=== PATIENT | male | born 1945 | race Caucasian/White ===

== ENCOUNTER 2020-07-05 15:01 | Emergency (ER) | payer OTHER, SELFPAY ==
[2020-07-05 14:45] VITALS: BP 139/84; PULSE 82; RESP 16; TEMP 36.7; O2SAT 97
[2020-07-05 15:20] VITALS: PULSE 80; O2SAT 96
[2020-07-05 15:30] VITALS: PULSE 87; O2SAT 97
--- NOTE | 2020-07-05 15:35 | ED.BACK ---
HPI - Back Pain/Injury <RAMAN Hooks - Last Filed: 07/05/20 21:08> General Chief Complaint: Back Pain/Injury Stated Complaint: Back Spasms Time Seen by Provider: 07/05/20 15:07 Source: EMS History of Present Illness HPI Narrative: 74yo male presents to the ED for R knee pain. He states he has a history of sciatica, was recently seen at [facility] approximately 12 days ago for an infection in his right knee. Patient states he had surgery at that time it to remove the staph infection. He has been given pain medications. He states he noticed increasing pain this morning when it was time for his next delighted dose. Patient states he is able to put some weight on his leg but not bear full weight due to pain. He has a history of right-sided sciatica and states he has been having spasms and worsening back pain. Patient states he took his last dose of Dilaudid and does not have any pain medication at home. Patient has been taking Ephr[place] and Dilaudid at the same time. He states Ephrata does not touch his pain. He denies any fevers, chills, nausea, vomiting, diarrhea, worsening swelling, or other concerns. Related Data Previous Rx's Medication Instructions Recorded hydromorphone 1 mg PO Q4-6H PRN #10 tab 07/05/20 Allergies Allergy/AdvReac Type Severity Reaction Status Date / Time No Known Drug Allergies Allergy Verified 07/05/20 15:21 Review of Systems <RAMAN Hooks - Last Filed: 07/05/20 21:08> Review of Systems Narrative: REVIEW OF SYSTEMS: GENERAL: Denies fever or chills. HENT: No head trauma. CARDIOVASCULAR: No chest pain. RESPIRATORY: No shortness of breath. GASTROINTESTINAL: No nausea, vomiting, diarrhea, or constipation. GENITOURINARY: No flank pain. MUSCULOSKELETAL: Complains of right knee pain and right-sided sciatica, see HPI. INTEGUMENTARY: No rash, lesions, or pruritus. NEURO: No numbness, tingling. PSYCH: No behavior or mood changes. Patient History <RAMAN Hooks - Last Filed: 07/05/20 21:08> Medical History Sciatica (Acute) Social History Smoking Status: Never smoker Smoking Status: Never smoker Substance Use Type: does not use Exam <RAMAN Hooks - Last Filed: 07/05/20 21:08> Initial Vital Signs Initial Vital Signs: Vital Signs Temperature 98.1 F 07/05/20 14:45 Pulse Rate 82 07/05/20 14:45 Respiratory Rate 16 07/05/20 14:45 Blood Pressure 139/84 07/05/20 14:45 Pulse Oximetry 97 07/05/20 14:45 PHYSICAL EXAMINATION: GENERAL: Well groomed, alert, and cooperative. Answers questions promptly and appropriately. Vital signs noted. HENT: Normocephalic, atraumatic. EYES: Symmetrical, sclera white, no periorbital swelling. CARDIOVASCULAR: S1 and S2 sounds normal. Regular rate and rhythm, no murmurs, clicks, or bruits. RESPIRATORY: Normal respiratory rate, trachea midline, airway patent. No stridor, nasal flaring or accessory muscle use. Lungs are clear in all wilson. MUSCULOSKELETAL: Postsurgical swelling noted to right knee, no increased temp, erythema, or purulent drainage from surgical sites. No tenderness to calf or thigh. Patient has positive straight leg test, reports pain in right lower lumbar area.Equal tone and mass bilaterally. No spinal tenderness or deformities. EXTREMITIES: CMS intact. No pedal edema. SKIN: Warm, dry, soft, appropriate color for ethnicity. No lesions, rashes, or wounds. NEURO: Alert and Oriented X 3. No sensory deficits. PSYCH: Appropriate affect and mood. <Chao De Oliveira MD - Last Filed: 07/30/20 07:14> Initial Vital Signs Initial Vital Signs: Vital Signs Temperature 98.1 F 07/05/20 14:45 Pulse Rate 82 07/05/20 14:45 Respiratory Rate 16 07/05/20 14:45 Blood Pressure 139/84 07/05/20 14:45 Pulse Oximetry 97 07/05/20 14:45 Course <RAMAN Hooks - Last Filed: 07/05/20 21:08> Course Course Narrative: Patient continues to deny pain in the emergency department. Records obtained from [facility] note white blood cell count on 06/30/2020 to be 14.2. Instructed to take cephalexin, patient states he is taking this as prescribed. Patient discharged on 06/30/2020 with [place] and Dilaudid 2mg tabs Orders Ordered: ED Orders 07/05/20 16:04 Complete Blood Count AUTO DIFF Stat Comprehensive Metabolic Panel Stat Consultations Consultation #1: Patient staffed with Dr. De Oliveira discussed test, test results, plan of care. Vital Signs Vital signs: Vital Signs - 8 hr 07/05/20 14:45 07/05/20 15:20 07/05/20 15:30 Temperature 98.1 F Pulse Rate 82 80 87 Respiratory Rate 16 Blood Pressure 139/84 Pulse Oximetry 97 96 97 07/05/20 16:00 07/05/20 16:30 07/05/20 17:00 Temperature Pulse Rate 88 85 84 Respiratory Rate Blood Pressure 134/84 131/84 138/81 Pulse Oximetry 96 96 98 <Chao De Oliveira MD - Last Filed: 07/30/20 07:14> Orders Ordered: ED Orders 07/05/20 16:04 Complete Blood Count AUTO DIFF Stat Comprehensive Metabolic Panel Stat Vital Signs Vital signs: Vital Signs - 8 hr 07/05/20 14:45 07/05/20 15:20 07/05/20 15:30 Temperature 98.1 F Pulse Rate 82 80 87 Respiratory Rate 16 Blood Pressure 139/84 Pulse Oximetry 97 96 97 07/05/20 16:00 07/05/20 16:30 07/05/20 17:00 Temperature Pulse Rate 88 85 84 Respiratory Rate Blood Pressure 134/84 131/84 138/81 Pulse Oximetry 96 96 98 MDM - Back Pain/Injury <RAMAN Hooks - Last Filed: 07/05/20 21:08> Medical Records Attestation: I reviewed the patient's medical records. Lab Data Attestation: I reviewed the patient's lab results. Result diagrams: 07/05/20 16:04 07/05/20 16:04 Labs: Lab Results 07/05/20 07/05/20 Range/Units 16:04 16:04 WBC 11.6 H (4.5-11.0) X10^3/uL RBC 4.07 L (4.5-5.9) X10^6/uL Hgb 12.9 L (13.5-17.5) g/dL Hct 37.3 L (41-53) % MCV 91.6 (80-100) fL MCH 31.6 (26-34) PG MCHC 34.5 (30-36) % RDW 12.9 (11.6-14.8) % Plt Count 322 (150-400) X10^3/uL Neut % (Auto) 82.5 H (50-75) % Lymph % (Auto) 10.0 L (25-40) % Hinds % (Auto) 6.3 (3-14) % Eos % (Auto) 0.6 L (2-4) % Baso % (Auto) 0.6 (0-2) % Neut # (Auto) 9500 H (4505-3069) /uL Lymph # (Auto) 1200 (9357-1879) /uL Hinds # (Auto) 700 (0-900) /uL Eos # (Auto) 100 (0-450) /uL Baso # (Auto) 100 (0-100) /uL Sodium 131 L (137-145) mmol/L Potassium 3.7 (3.4-5.1) mmol/L Chloride 90 L (98-107) mmol/L Carbon Dioxide 34 H (22-32) mmol/L BUN 23 H (9-20) mg/dL Creatinine 0.95 (0.66-1.25) mg/dL Estimated GFR > 60.0 (>60) mL/min BUN/Creatinine Ratio 24.2 H (6-22) Glucose 117 H (80-110) mg/dL Calcium 8.2 L (8.4-10.2) mg/dL Total Bilirubin 0.7 (0.2-1.3) mg/dL AST 29 (17-59) IU/L ALT 46 (<50) IU/L Alkaline Phosphatase 132 H (38-126) U/L Total Protein 6.4 (6.3-8.2) g/dL Albumin 3.1 L (3.5-5.0) g/dL Globulin 3.3 (1.7-4.1) g/dL Albumin/Globulin Ratio 0.9 L (1.0-2.8) MDM Narrative Medical decision making narrative: 74-year-old male presenting to the emergency department for what appears to be sciatica pain is a history of recent surgery on his right knee and is currently taking antibiotics for staph infection. Patient's white blood cell count has declined since last checked on 06/30/2020. [facility] orthopedic office was called to schedule an appointment, stated they are waiting for approval. Referral was placed to schedule Orthopedics in hopes of expediting appointment for further follow-up in pain management. Patient was counseled extensively to continue to move leg help decreased pain and sciatica involvement. Discussed sciatic involvement is often chronic but also exacerbated by a new trauma such as knee surgery. Knee does not look infected, patient is hemodynamically stable, non tachycardic and afebrile, no redness, weeping from the wound, or increased temp to palpation. Strict return precautions given for new or worsening symptoms. Patient was given a small dose of pain medication to bridge him until his appointment. Return precautions given for new or worsening symptoms. Patient agreed to plan of care verbalized understanding <Chao De Oliveira MD - Last Filed: 07/30/20 07:14> Lab Data Labs: Lab Results 07/05/20 07/05/20 Range/Units 16:04 16:04 WBC 11.6 H (4.5-11.0) X10^3/uL RBC 4.07 L (4.5-5.9) X10^6/uL Hgb 12.9 L (13.5-17.5) g/dL Hct 37.3 L (41-53) % MCV 91.6 (80-100) fL MCH 31.6 (26-34) PG MCHC 34.5 (30-36) % RDW 12.9 (11.6-14.8) % Plt Count 322 (150-400) X10^3/uL Neut % (Auto) 82.5 H (50-75) % Lymph % (Auto) 10.0 L (25-40) % Hinds % (Auto) 6.3 (3-14) % Eos % (Auto) 0.6 L (2-4) % Baso % (Auto) 0.6 (0-2) % Neut # (Auto) 9500 H (1588-1559) /uL Lymph # (Auto) 1200 (3785-9432) /uL Hinds # (Auto) 700 (0-900) /uL Eos # (Auto) 100 (0-450) /uL Baso # (Auto) 100 (0-100) /uL Sodium 131 L (137-145) mmol/L Potassium 3.7 (3.4-5.1) mmol/L Chloride 90 L (98-107) mmol/L Carbon Dioxide 34 H (22-32) mmol/L BUN 23 H (9-20) mg/dL Creatinine 0.95 (0.66-1.25) mg/dL Estimated GFR > 60.0 (>60) mL/min BUN/Creatinine Ratio 24.2 H (6-22) Glucose 117 H (80-110) mg/dL Calcium 8.2 L (8.4-10.2) mg/dL Total Bilirubin 0.7 (0.2-1.3) mg/dL AST 29 (17-59) IU/L ALT 46 (<50) IU/L Alkaline Phosphatase 132 H (38-126) U/L Total Protein 6.4 (6.3-8.2) g/dL Albumin 3.1 L (3.5-5.0) g/dL Globulin 3.3 (1.7-4.1) g/dL Albumin/Globulin Ratio 0.9 L (1.0-2.8) Discharge Plan Departure Patient Disposition: Home Clinical Impression: Status post knee surgery, Sciatica Discharge Date/Time: 07/05/20 17:30 Instructions: DI for Sciatica Activity Restrictions/Additional Instructions: Thank you for entrusting me with your care today. As discussed, it appears that your pain is most likely related to both your sciatica and postsurgical knee swelling. It does not look infected at this time. However, please continue your antibiotics as instructed. You have been prescribed a narcotic medication, this medication can make you drowsy. Do not drive while using this medication or perform activities that require mental alertness. These medications can also make you constipated, please use [id number] docusate sodium as needed for constipation. I refer due to [facility]. Additionally, we called the Orthopedics at [facility], they are waiting for prior authorization for an appointment and we will call you soon. Please return emergency department for any new or worsening symptoms such as increasing swelling, fevers, uncontrollable vomiting, or any other concerns. Prescriptions: New hydromorphone 2 mg tablet 1 mg PO Q4-6H PRN (Reason: pain) Qty: 10 RF: 0 Referrals: Isis Alonso MD [Physician] -
[2020-07-05 16:00] VITALS: BP 134/84; PULSE 88; O2SAT 96
[2020-07-05 16:13] LABS: Add Manual Diff / Slide Review NO; Basophils Absolute Auto 100 /uL (0-100); Basophils Percent Auto 0.6 % (0-2); Eosinophils Absolute Auto 100 /uL (0-450); Eosinophils Percent Auto 0.6 % (2-4); Hematocrit 37.3 % (41-53); Hemoglobin 12.9 g/dL (13.5-17.5); Lymphocytes Absolute Auto 1200 /uL (1100-4500); Mean Corpuscular HGB Conc 34.5 % (30-36); Mean Corpuscular Hemoglobin 31.6 PG (26-34); Mean Corpuscular Volume 91.6 fL (80-100); Monocytes Absolute Auto 700 /uL (0-900); Monocytes Percent Auto 6.3 % (3-14); Neutrophils Absolute Auto 9500 /uL (1500-7000); Neutrophils Percent Auto 82.5 % (50-75); Platelet Count 322 X10^3/uL (150-400); Red Blood Cell Count 4.07 X10^6/uL (4.5-5.9); Red Cell Distribution Width 12.9 % (11.6-14.8); White Blood Cell Count 11.6 X10^3/uL (4.5-11.0)
--- NOTE | 2020-07-05 16:13 | PC.NURSE ---
Provider asked me to call for an appointment with ortho from [facility]. I reached the clinic at [facility] where Ortho is currently working out of due to COVID-19. The clinic has already sent out a prior authorization request to the patients insurance. Once they receive this back they are going to be calling the patient to schedule an appointment. I called [facility].
[2020-07-05 16:21] LABS: Alanine Aminotransferase 46 IU/L (<50); Albumin 3.1 g/dL (3.5-5.0); Albumin Globulin Ratio 0.9 (1.0-2.8); Alkaline Phosphatase 132 U/L (38-126); Aspartate Aminotransferase 29 IU/L (17-59); BUN Creatinine Ratio 24.2 (6-22); Bilirubin Total 0.7 mg/dL (0.2-1.3); Blood Urea Nitrogen 23 mg/dL (9-20); Calcium 8.2 mg/dL (8.4-10.2); Carbon Dioxide 34 mmol/L (22-32); Chloride 90 mmol/L (98-107); Estimated Glomerular Filt Rate > 60.0 mL/min (>60); Globulin 3.3 g/dL (1.7-4.1); Glucose 117 mg/dL (80-110); HEMOLYSIS < 15 (0-50); Potassium 3.7 mmol/L (3.4-5.1); Sodium 131 mmol/L (137-145); Total Protein 6.4 g/dL (6.3-8.2)
[2020-07-05 16:30] VITALS: BP 131/84; PULSE 85; O2SAT 96
[2020-07-05 17:00] VITALS: BP 138/81; PULSE 84; O2SAT 98
== END 2020-07-05 17:30 | disposition home or self-care (01) ==
PROVIDERS: Emergency Provider Nurse Practitioner
DX: M54.31 Sciatica, right side (principal)
CPT/HCPCS: 36415; 80053; 85025; 99281; 99283